=== PATIENT | female | born 1945 | race Caucasian/White ===

== ENCOUNTER 2016-04-16 07:29 | Day surgery (SDC) | payer MEDICARE ==
[~2016-04-16] VITALS: Ht 154.9 cm; Wt 71.7 kg
[~2016-04-16 07:29] MED LIST: 0.9% Sodium Chloride 1,000 ML IV SCH; ATEN25TA PO; DEXA0.5E2 PO; DICL75TA6 PO; DULO20CA PO; FOLI1TAB18 PO; GABA-502 PO; GABA600T2 PO; HYOS0.1218 SL; INFL100V IV; LOSA100T3 PO; MAGN400T4 PO; MULT-1018 PO; NIAC500C3 PO; NYST1000 PO; OMEG300C3 PO; OMEP20TA24 PO; PRE20 PO; Sodium Chloride LOK Flush 10 mL Syringe IV PRN; VITA400C64 PO; ZOF8 PO; fentaNYL-PF 50 mCg/mL 2 mL Inj IVPUSH PRN
[2016-04-16 07:43] VITALS: BP 135/63; PULSE 87; RESP 14; O2SAT 96
[2016-04-16] MEDS ORDERED: [UNRECOGNIZED DRUG - OTHER] PEG (07:50)
[2016-04-16 09:05] VITALS: BP 101/64; PULSE 80; RESP 16; O2SAT 94
[2016-04-16 09:15] VITALS: BP 90/60; PULSE 71; RESP 14; O2SAT 95
[2016-04-16 09:22] VITALS: BP 99/55; PULSE 78; RESP 14; O2SAT 94
[2016-04-16 09:32] VITALS: BP 110/61; PULSE 76; RESP 14; O2SAT 96
--- NOTE | 2016-04-16 10:47 | ENDO ---
[address] [address] ENDOSCOPY PROCEDURE PATIENT: ABY LOPEZ : 1945 MR#: [id number] ADMIT: 04/16/2016 JOB ID: [id number] DATE: 04/16/2016 PROCEDURE: 1. Esophagogastroduodenoscopy with biopsy. 2. Colonoscopy with biopsy. PREOPERATIVE DIAGNOSIS(ES): 1. Abdominal pain. 2. Diarrhea. POSTOPERATIVE DIAGNOSIS(ES): 1. Normal colonoscopy, status post biopsy. 2. Normal upper endoscopy, status post biopsy. ANESTHESIA: Fentanyl 125 mcg, Versed 6 mg IV administered. COMPLICATIONS: None. BLOOD LOSS: Minimal. DESCRIPTION OF PROCEDURE: After risks and benefits were explained to the patient, informed consent was obtained. After anesthesia was administered, upper endoscope was inserted in the mouth and intubated to the esophagus, stomach, second portion of duodenum, and mucosa carefully examined. After mucosa was examined, the was scope withdrawn and procedure terminated. Colonoscope was then inserted from the rectum to the cecum and mucosa carefully examined. Prep of the patient was excellent. After the procedure was done, the scope was withdrawn and procedure terminated. FINDINGS: Upon inspection of esophagus, esophagus was normal without masses, ulcers, or lesions. Z-line located at 35 cm from incisors. Upon entry in the stomach, stomach was normal without masses, ulcers, or lesions. Retroflexion was normal. Duodenal bulb, first and second portion normal. Biopsies taken at the duodenum, antrum, and body of stomach. Upon inspection of the anus, no masses, hemorrhoids, ulcers, or fissures were seen throughout the entire examination. There were no polyps, masses, or lesions. Biopsies were taken at terminal, random colon to rule out IBD, microscopic colitis. Retroflexion was normal. IMPRESSION: Normal upper endoscopy and colonoscopy. RECOMMENDATIONS: Await pathology results. Follow up in GI clinic as needed.
--- NOTE | 2016-04-19 14:04 | PATH ---
SURGICAL PATHOLOGY Attending Physician:Jalen Joshi MD CASE STATUS: Signed Out PATIENT NAME: ABY LOPEZ PID: [id number] : 1945 DATE COLLECTED:04/16/2016 21:46 SPECIMEN: 1: Duodenum, Biopsy 2: Stomach, Antrum, Biopsy 3: Gastric, Biopsy 4: Ileum, Biopsy 5: Colon, Biopsy CLINICAL HISTORY: 1). DUODENAL BIOPSY 2). ANTRUM BIOPSY 3). GASTRIC BODY BIOPSY 4). TERMINAL ILEUM BIOPSY 5). RANDOM COLON BIOPSY FINAL DIAGNOSIS: 1.DUODENUM, BIOPSY: NO DIAGNOSTIC ABNORMALITY. Negative for intraepithelial lymphocytosis, villous blunting, or other features of celiac sprue. Negative for Giardia organisms, dysplasia and malignancy. 2.STOMACH BIOPSY: GASTRIC ANTRUM WITH MILD CHRONIC GASTRITIS. Negative for Helicobacter organisms. Negative for intestinal metaplasia. No evidence of dysplasia or malignancy. 3.GASTRIC BIOPSY: GASTRIC CORPUS WITH MILD CHRONIC GASTRITIS. Negative for Helicobacter organisms. Negative for intestinal metaplasia. No evidence of dysplasia or malignancy. 4.TERMINAL ILEUM BIOPSY: NORMAL SMALL BOWEL MUCOSA. No significant inflammation identified. No evidence of malignancy or dysplasia. 5.COLON, RANDOM BIOPSIES: NORMAL COLONIC MUCOSA. No significant inflammation identified. No evidence of dysplasia or malignancy. ICD10 code GROSS DESCRIPTION: Received are five formalin-filled containers, each labeled with the patient' s name. 1. Received in formalin, labeled with the patient' s name and "duodenum biopsy", are two fragments of [place], soft tissue ranging in size from 0.1 x 0.1 x 0.1 cm to 0.2 x 0.1 x 0.1 cm. All fragments are totally submitted in cassette 1A. 2. Received in formalin, labeled with the patient' s name and "antrum biopsies", is one fragment of [place], soft tissue measuring 0.2 x 0.2 x 0.1 cm. The fragment is totally submitted in cassette 2A. 3. Received in formalin, labeled with the patient' s name and "gastric biopsies", are two fragments of [place], soft tissue ranging in size from 0.1 x 0.1 x 0.1 cm to 0.2 x 0.2 x 0.1 cm. All fragments are totally submitted in cassette 3A. 4. Received in formalin, labeled with the patient' s name and "TI biopsy", is one fragment of [place], soft tissue measuring 0.2 x 0.1 x 0.1 cm. The fragment is totally submitted in cassette 4A. 5. Received in formalin, labeled with the patient' s name and "random colon biopsies", are three fragments of [place], soft tissue ranging in size from 0.2 x 0.2 x 0.2 cm to 0.3 x 0.2 x 0.2 cm. All fragments are totally submitted in cassette 5A. ([id number]) MICRO DESCRIPTION: See diagnosis. ICD-9 CODES: CPT CODES: 1: 69308 2: 79718 3: 84986 4: 59286 5: 40034 Electronically Signed Out Raheel Prieto MD [facility] [address], [place] [address] Technical component performed at [facility], [address], [place], [address]
[2016-04-27] MEDS ORDERED: [UNRECOGNIZED DRUG - OTHER] PO (14:39)
[2016-04-27] MEDS ORDERED: PRE10 PO (14:39)
== END 2016-04-16 23:59 | disposition home or self-care (01) ==
LOC: END 07:29
PROVIDERS: ATTEND Internal Medicine Gastroenterology
DX: R19.7 Diarrhea, unspecified (principal); K29.50 Unspecified chronic gastritis without bleeding; E11.9 Type 2 diabetes mellitus without complications; D50.9 Iron deficiency anemia, unspecified; I10 Essential (primary) hypertension; M06.9 Rheumatoid arthritis, unspecified; E78.5 Hyperlipidemia, unspecified; F32.9 Major depressive disorder, single episode, unspecified; G47.10 Hypersomnia, unspecified; Z79.52 Long term (current) use of systemic steroids
CPT/HCPCS: 43239; 45380; 99153; G0500; J2250; J3010; J7030